=== PATIENT | male | born 1955 | race Caucasian/White ===

== ENCOUNTER 2018-07-14 12:44 | Emergency (ER) | payer OTHER ==
[2018-07-14] MEDS ORDERED: PHENAZOPYRIDINE HCL 200 MG TAB PO ONE (13:56)
[2018-07-14 14:31] LABS: PLATELET COUNT 258 10^3/uL (150-400)
--- NOTE | 2018-07-14 14:50 | EDPHY ---
H & P Time Seen by Provider: 07/14/18 13:01 HPI/ROS: Chief complaint. Abdominal pain, dysuria HPI. 63-year-old male presents with 3 day history of lower abdominal pain. Worse last evening. Some diarrhea last night. He has urinary frequency and tells me he is urinating every 15 min. It also now hurts to urinate. His pain is in the suprapubic area. No radiation of the back. Denies fever. He tells me he can't get comfortable but pain is not worse with movement. He is hypertensive and tells me his blood pressure usually is about 160/90. He does have a history of UTI. No history kidney stones. No chest discomfort or trouble breathing ROS 10 systems were reviewed and negative with the exception of the elements mentioned in the history of present illness Past Medical/Surgical History: Hypertension, inguinal hernia surgery Social History: Single, nonsmoker, no alcohol Smoking Status: Never smoked Physical Exam: General Appearance: Alert well-developed male moderate distress vital signs significant for blood pressure 230/134 Eyes: Pupils equal and round no pallor or injection. ENT, Mouth: Mucous membranes are moist. Respiratory: There are no retractions, lungs are clear to auscultation. Cardiovascular: Regular rate and rhythm. Gastrointestinal: Abdomen is soft with tenderness in the suprapubic area. No flank tenderness. Neurological: Awake and alert, sensory and motor exams grossly normal. Skin: Warm and dry, no rashes. Musculoskeletal: Neck is supple nontender. Extremities symmetrical, full range of motion. Psychiatric: Patient is oriented X 3, there is no agitation. Constitutional: Initial Vital Signs Temperature (C) 36.7 C 07/14/18 12:48 Heart Rate 90 07/14/18 12:48 Respiratory Rate 20 07/14/18 12:48 Blood Pressure 230/134 H 07/14/18 12:48 O2 Sat (%) 94 07/14/18 12:48 O2 Delivery Mode Room Air Allergies/Adverse Reactions: No Known Allergies Allergy (Unverified 07/14/18 12:48) Home Medications: Medication Instructions Recorded Cephalexin [Keflex (*)] 500 mg PO TID #21 cap 07/14/18 Lisinopril-Hctz 10-12.5 mg Tab 07/14/18 oxyCODONE/APAP 5/325 [Percocet 1 tab PO Q4-6PRN PRN #10 tab 07/14/18 5/325] Medical Decision Making - Diagnostics Imaging Results: Imaging Impressions Abdomen/Pelvis CT 07/14/18 13:55 Impression: 1. There is no evidence of nephroureterolithiasis, although there is mild bilateral hydroureteronephrosis secondary to prostatomegaly with pronounced urinary bladder distention, features suggesting an outlet obstruction or high- grade stenosis. 2. Hepatic steatosis. 3. Mild cardiomegaly with coronary artery atherosclerotic plaque. Attention: This CT examination is specifically designed to evaluate patients who are clinically suspected of having acute obstructive uropathy. This examination does not use radiographic contrast, and as such, provides only a limited evaluation of the abdomen, pelvis, and retroperitoneum. If there is further clinical suspicion for pathological conditions other than obstructive uropathy, a complete CT evaluation of the abdomen and pelvis utilizing intravenous, oral, and rectal contrast should be considered. Findings were discussed with JAGJIT RODAS MD at 14:41, on 07/14/2018. Head CT 07/14/18 16:00 Impression: 1. Mild periventricular and deep hemispheric white matter change that can be seen with small vessel ischemic disease. No evidence for acute intracranial abnormality. 2. Mild chronic sinus-related change. Results called and discussed with Dr. Jagjit Rodas on July 14, [address] reviewed by me shows increased prostate size. Significant bladder distension. Mild bilateral hydronephrosis. No evidence for kidney stone. Reviewed by me and discussed with Dr. Martin Noncontrast head CT after fall shows no evidence for acute injury Procedures: IV normal saline. Morphine for pain. Ruth catheter is placed with approximately the 1300 mL of urine out ED Course/Re-evaluation: Patient was turning in bed trying to look at his blood pressure as it had been improving with hypertension resolving after morphine. He twisted and he fell out the patient's right side of the bed. Struck his head. Was found lying on floor. Apparent brief loss of consciousness. Laceration to the forehead and right cheek that do not require sutures. Head CT is ordered. On exam he has no neck pain or any back pain or any other injuries Re-evaluation 5:00 p.m.. Patient and I discussed laboratory evaluation and imaging study results. Patient feels well to go home. He is offered admission. We discussed treatment plan including criteria for return importance of follow-up and further evaluation. He agrees to call Urology on Monday morning. Otherwise he expresses understanding and agreement with treatment plan His blood pressure is currently 155/89 Differential Diagnosis: Acute urinary tension apparently secondary to enlarged prostate. He has had 2000 mL saline out. His abdominal pain has resolved. He fell and hit his head sustaining superficial lacerations do not require sutures. He has a normal head CT. His urine is sent for culture but at this point no obvious evidence of infection. - Data Points Laboratory Results: Laboratory Results 07/14/18 14:16 07/14/18 14:16 07/14/18 07/14/18 07/14/18 14:16 14:16 12:50 WBC 12.50 10^3/uL H 10^3/uL (3.80-9.50) RBC 5.34 10^6/uL 10^6/uL (4.40-6.38) Hgb 14.6 g/dL g/dL (13.7-17.5) Hct 44.4 % % (40.0-51.0) MCV 83.1 fL fL (81.5-99.8) MCH 27.3 pg L pg (27.9-34.1) MCHC 32.9 g/dL g/dL (32.4-36.7) RDW 14.2 % % (11.5-15.2) Plt Count 258 10^3/uL 10^3/uL (150-400) MPV 10.7 fL fL (8.7-11.7) Neut % (Auto) 77.6 % H % (39.3-74.2) Lymph % (Auto) 12.4 % L % (15.0-45.0) [place] % (Auto) 8.6 % % (4.5-13.0) Eos % (Auto) 0.9 % % (0.6-7.6) Baso % (Auto) 0.2 % L % (0.3-1.7) Nucleat RBC Rel Count 0.0 % % (0.0-0.2) Absolute Neuts (auto) 9.69 10^3/uL H 10^3/uL (1.70-6.50) Absolute Lymphs (auto) 1.55 10^3/uL 10^3/uL (1.00-3.00) Absolute Monos (auto) 1.08 10^3/uL H 10^3/uL (0.30-0.80) Absolute Eos (auto) 0.11 10^3/uL 10^3/uL (0.03-0.40) Absolute Basos (auto) 0.03 10^3/uL 10^3/uL (0.02-0.10) Absolute Nucleated RBC 0.00 10^3/uL 10^3/uL (0-0.01) Immature Gran % 0.3 % % (0.0-1.1) Immature Gran # 0.04 10^3/uL 10^3/uL (0.00-0.10) Sodium 139 mEq/L mEq/L (135-145) Potassium 3.9 mEq/L mEq/L (3.5-5.2) Chloride 109 mEq/L mEq/L (97-110) Carbon Dioxide 23 mEq/l mEq/l (22-31) Anion Gap 7 mEq/L mEq/L (6-14) BUN 24 mg/dL H mg/dL (7-23) Creatinine 1.4 mg/dL H mg/dL (0.7-1.3) Estimated GFR 52 Glucose 105 mg/dL H mg/dL (70-100) Calcium 9.5 mg/dL mg/dL (8.5-10.4) Urine Color YELLOW Urine Appearance CLEAR Urine pH 5.0 (5.0-7.5) Ur Specific [place] 1.013 (1.002-1.030) Urine Protein 2+ H (NEGATIVE) Urine Ketones NEGATIVE (NEGATIVE) Urine Blood 2+ H (NEGATIVE) Urine Nitrate NEGATIVE (NEGATIVE) Urine Bilirubin NEGATIVE (NEGATIVE) Urine Urobilinogen NEGATIVE EU EU (0.2-1.0) Ur Leukocyte Esterase NEGATIVE (NEGATIVE) Urine RBC 10-15 /hpf H /hpf (0-3) Urine WBC 1-3 /hpf /hpf (0-3) Ur Epithelial Cells TRACE /lpf /lpf (NONE-1+) Urine Mucus TRACE /lpf /lpf (NONE-1+) Urine Glucose NEGATIVE (NEGATIVE) Medications Given: Discontinued Medications Sodium Chloride (Ns) 1,000 mls @ 0 mls/hr IV ONCE ONE; Wide Open PRN Reason: Protocol Stop: 07/14/18 15:58 Last Admin: 07/14/18 15:58 Dose: 1,000 mls Morphine Sulfate (Morphine) 6 mg IVP EDNOW ONE Stop: 07/14/18 13:55 Last Admin: 07/14/18 14:18 Dose: 6 mg Ondansetron HCl (Zofran) 4 mg IVP EDNOW ONE Stop: 07/14/18 15:58 Last Admin: 07/14/18 15:58 Dose: 4 mg Phenazopyridine HCl (Pyridium) 200 mg PO EDNOW ONE Stop: 07/14/18 13:57 Last Admin: 07/14/18 14:15 Dose: 200 mg Departure - Departure Disposition: Home, Routine, Self-Care Clinical Impression: Acute urinary retention Condition: Good Instructions: Urinary Retention in Men (ED), Ruth Catheter Placement and Care (ED) Additional Instructions: Cephalexin as antibiotic. Percocet as needed for pain. May use ibuprofen 600 mg every 6 hr. May use Tylenol 1000 mg every 4-6 hours for discomfort. Percocet has some Tylenol in it so may use Percocet and ibuprofen together but not Percocet Tylenol together Return over the weekend for worsening symptoms. Call Urology on Monday for further evaluation and catheter removal Referrals: NONE *PRIMARY CARE P,. [Primary Care Provider] - As per Instructions Emmanuel Clay MD [Medical Doctor] - 2-3 days without fail Prescriptions: Cephalexin [Keflex (*)] 500 mg PO TID #21 cap oxyCODONE/APAP 5/325 [Percocet 5/325] 1 tab PO Q4-6PRN PRN #10 tab PRN Reason: Pain, Moderate
[2018-07-14] MEDS ORDERED: ONDANSETRON 4 MG/2 ML VIAL ONE (15:56)
[2018-07-14] MEDS ORDERED: NS 1,000 ML IV ONE (15:57)
[2018-07-14] MEDS ORDERED: ONDANSETRON 4 MG/2 ML VIAL IVP ONE (15:57)
[2018-07-14] MEDS ORDERED: SKIN ADHESIVE (DERMABOND) 1 EACH TP ONE (17:58)
[2018-07-14 18:16] VITALS: BP 174/97
== END 2018-07-14 18:15 | disposition home or self-care (01) ==
PROC: 0T9B70Z Drainage of Bladder with Drainage Device, Via Natural or Artificial Opening (ICD-10-PCS; principal; 2018-07-14)
DX: N40.3 Nodular prostate with lower urinary tract symptoms (principal); R33.9 Retention of urine, unspecified; E86.9 Volume depletion, unspecified
CPT/HCPCS: 96374; J2270; J2405

== ENCOUNTER → 2018-08-24 | Outpatient (CLI) | payer SELFPAY | LOC: FIMAGING 08:31 | PROVIDERS: ATTEND Specialist | DX: M50.323 Other cervical disc degeneration at C6-C7 level (principal); M50.33 Other cervical disc degeneration, cervicothoracic region; C61 Malignant neoplasm of prostate | CPT/HCPCS: A9503 ==

== ENCOUNTER 2018-09-22 11:55 | Emergency (ER) | payer MEDICAID ==
--- NOTE | 2018-09-22 12:11 | EDPHY ---
H & P Time Seen by Provider: 09/22/18 12:08 HPI/ROS: Chief complaint. Catheter not draining HPI. Patient is a 63-year-old male with history of prostate cancer. He has had a Ruth catheter in place for about 6 weeks. Seen yesterday by Urology. Today he feels that the catheter is not draining. He has discomfort when he feels urge to urinate. Otherwise no abdominal pain, fever, vomiting. No chest discomfort or trouble breathing. ROS 10 systems were reviewed and negative with the exception of the elements mentioned in the history of present illness Past Medical/Surgical History: Prostate cancer, hypertension, inguinal hernia repair Social History: Single, nonsmoker, no alcohol Smoking Status: Never smoked Physical Exam: General Appearance: Well-developed male mild distress vital signs are stable Eyes: Pupils equal and round no pallor or injection. ENT, Mouth: Mucous membranes are moist. Respiratory: There are no retractions, lungs are clear to auscultation. Cardiovascular: Regular rate and rhythm. Gastrointestinal: Abdomen soft mildly tender in suprapubic pubic area. No masses. Normal bowel sounds. Ruth catheter in place Neurological: Awake and alert, sensory and motor exams grossly normal. Skin: Warm and dry, no rashes. Musculoskeletal: Neck is supple nontender. Extremities symmetrical, full range of motion. Psychiatric: Patient is oriented X 3, there is no agitation. Constitutional: Initial Vital Signs Temperature (C) 36.4 C 09/22/18 11:58 Heart Rate 78 09/22/18 11:58 Respiratory Rate 18 09/22/18 11:58 Blood Pressure 175/85 H 09/22/18 11:58 O2 Sat (%) 95 09/22/18 11:58 O2 Delivery Mode Room Air Allergies/Adverse Reactions: No Known Allergies Allergy (Unverified 07/14/18 12:48) Home Medications: Medication Instructions Recorded Cephalexin [Keflex (*)] 500 mg PO TID #21 cap 09/22/18 HCTZ (*) 09/22/18 Lisinopril 09/22/18 Medical Decision Making Procedures: Bladder scan shows no urine in the bladder. The Ruth catheter in bladder are irrigated ED Course/Re-evaluation: The catheter was flushed and irrigated and seems to be working. Patient has head large glass of water. Re-evaluation 2:05 p.m. There is no urine in the Ruth bag. Bladder scan shows 400 mL in bladder. A catheter is replaced and now draining Patient and I discussed laboratory evaluation, treatment plan including criteria for return importance of follow-up and further evaluation. He expresses understanding and agreement Differential Diagnosis: Ruth catheter was not draining. It has been flushed initially however there was no urine in the bladder on initial bladder scan. After hydration there is 400 mL of urine in the bladder but the Ruth was not working. It has been replaced min now functioning. Patient has evidence of catheter acquired urinary tract infection. It has been sent for culture and sensitivity. Patient is started on cephalexin - Data Points Laboratory Results: 09/22/18 12:15 Urine Color YELLOW Urine Appearance TURBID Urine pH 5.0 (5.0-7.5) Ur Specific [place] 1.019 (1.002-1.030) Urine Protein 2+ H (NEGATIVE) Urine Ketones NEGATIVE (NEGATIVE) Urine Blood 2+ H (NEGATIVE) Urine Nitrate NEGATIVE (NEGATIVE) Urine Bilirubin NEGATIVE (NEGATIVE) Urine Urobilinogen NEGATIVE EU EU (0.2-1.0) Ur Leukocyte Esterase 3+ H (NEGATIVE) Urine RBC 50-182 /hpf H /hpf (0-3) Urine WBC 50-182 /hpf H /hpf (0-3) Ur Epithelial Cells NONE SEEN /lpf /lpf (NONE-1+) Amorphous Sediment PRESENT /hpf /hpf (NONE-1+) Urine Bacteria 4+ /hpf H /hpf (NONE SEEN) Hyaline Casts 15-25 /lpf H /lpf (0-1) Urine Mucus 3+ /lpf H /lpf (NONE-1+) Urine Glucose NEGATIVE (NEGATIVE) Medications Given: Discontinued Medications Cephalexin HCl (Keflex) 500 mg PO EDNOW ONE PRN Reason: Protocol Stop: 09/22/18 13:13 Last Admin: 09/22/18 13:19 Dose: 500 mg Lidocaine (Uroject Lidocaine 2% Jelly) 20 ml UR EDNOW ONE Stop: 09/22/18 14:45 Last Admin: 09/22/18 14:45 Dose: 20 ml Departure - Departure Disposition: Home, Routine, Self-Care Clinical Impression: Urinary tract infection Qualifiers: Urinary tract infection type: catheter-associated UTI Indwelling urinary catheter type: indwelling urethral catheter Encounter type: initial encounter Qualified Code(s): T83.511A - Infection and inflammatory reaction due to indwelling urethral catheter, initial encounter; N39.0 - Urinary tract infection , site not specified; N39.0 - Urinary tract infection, site not specified Ruth catheter problem Qualifiers: Encounter type: initial encounter Qualified Code(s): T83.9XXA - Unspecified complication of genitourinary prosthetic device, implant and graft, initial encounter Condition: Good Instructions: Ruth Catheter Placement and Care (ED), [facility] Patient Education, Infection Prevention Additional Instructions: Drink plenty of fluids and stay hydrated Cephalexin as antibiotic Return for worsening symptoms, fever, vomiting Recheck with either your regular physician or Dr. Clay in 2-3 days without fail Referrals: NONE *PRIMARY CARE P,. [Primary Care Provider] - As per Instructions Emmanuel Clay MD [Medical Doctor] - As per Instructions Prescriptions: Cephalexin [Keflex (*)] 500 mg PO TID #21 cap
[2018-09-22] MEDS ORDERED: CEPHALEXIN 500 MG CAP PO ONE (13:12)
[2018-09-22] MEDS ORDERED: LIDOCAINE 2% JELLY 20 ML (UROJECT) ONE (14:44)
[2018-09-22] MEDS ORDERED: LIDOCAINE 2% JELLY 20 ML (UROJECT) UR ONE (14:44)
[2018-09-22 15:17] VITALS: BP 185/90
== END 2018-09-22 15:19 | disposition home or self-care (01) ==
PROC: 4A0D7LZ Measurement of Urinary Volume, Via Natural or Artificial Opening (ICD-10-PCS; principal; 2018-09-22)
PROC: 0T9B70Z Drainage of Bladder with Drainage Device, Via Natural or Artificial Opening (ICD-10-PCS; principal; 2018-09-22)
DX: T83.091A Other mechanical complication of indwelling urethral catheter, initial encounter (principal); T83.511A Infection and inflammatory reaction due to indwelling urethral catheter, initial encounter; N39.0 Urinary tract infection, site not specified; Y73.2 Prosthetic and other implants, materials and accessory gastroenterology and urology devices associated with adverse incidents; Z85.46 Personal history of malignant neoplasm of prostate

== ENCOUNTER 2018-10-08 20:32 | Emergency (ER) | payer MEDICAID ==
--- NOTE | 2018-10-08 21:06 | EDPHY ---
H & P Stated Complaint: Ruth cathr plugged, since this AM, Prostate Ca pt Time Seen by Provider: 10/08/18 20:55 HPI/ROS: CHIEF COMPLAINT: Ruth catheter obstruction HISTORY OF PRESENT ILLNESS: The patient is a 63-year-old man with a history of prostate cancer who is waiting for treatment and TURP. He has an indwelling Ruth catheter. He was seen here 2 weeks ago for obstruction and urinary tract infection at that time started on Keflex had his Ruth changed. He was on this for 10 days and was then switched to ciprofloxacin by his urologist 3 days ago. He states that his urine has been clear and he is not concerned about this but today he has felt increasing pressure and has not had much urine into his bag. He is here requesting a Ruth catheter change. He states that last time they tried to flush it 1st but it did not work. Severity: Moderate Modifying factors: None REVIEW OF SYSTEMS: Constitutional: denies: chills, fever, recent illness, recent injury EENTM: denies: blurred vision, double vision, nose congestion Respiratory: denies: cough, shortness of breath Cardiac: denies: chest pain, irregular heart rate, lightheadedness, palpitations Gastrointestinal/Abdominal: denies: abdominal pain, diarrhea, nausea, vomiting, blood streaked stools Genitourinary: See HPI Musculoskeletal: denies: joint pain, muscle pain Skin: denies: lesions, rash, jaundice, bruising Neurological: denies: headache, numbness, paresthesia, tingling, dizziness, weakness Hematologic/Lymphatic: denies: blood clots, easy bleeding, easy bruising Immunologic/allergic: denies: HIV/AIDS, transplant 10 systems reviewed and negative except as noted EXAM: GENERAL: Well-appearing, obese and in no acute distress. HEAD: Atraumatic, normocephalic. EYES: Pupils equal round and reactive to light, extraocular movements intact, sclera anicteric, conjunctiva are normal. ENT: TMs normal, nares patent, oropharynx clear without exudates. Moist mucous membranes. NECK: Normal range of motion, supple without lymphadenopathy or JVD. LUNGS: Breath sounds clear to auscultation bilaterally and equal. No wheezes rales or rhonchi. HEART: Regular rate and rhythm without murmurs, rubs or gallops. ABDOMEN: Obese, Soft, nontender, normoactive bowel sounds. No guarding, no rebound. No masses appreciated. BACK: No CVA tenderness, no spinal tenderness, step-offs or deformities EXTREMITIES: Normal range of motion, no pitting or edema. No clubbing or cyanosis. NEUROLOGICAL: Cranial nerves II through XII grossly intact. Normal speech, normal gait. 5/5 strength, normal movement in all extremities, normal sensation , normal reflexes PSYCH: Normal mood, normal affect. SKIN: Warm, dry, normal turgor, no visible rashes or lesions. Source: Patient Exam Limitations: No limitations - Personal History Current Tetanus Diphtheria and Acellular Pertussis (TDAP): Yes - Medical/Surgical History Hx Asthma: No Hx Chronic Respiratory Disease: No Hx Diabetes: No Hx Cardiac Disease: No Hx Renal Disease: No Hx Cirrhosis: No Hx Alcoholism: No Hx HIV/AIDS: No Hx Splenectomy or Spleen Trauma: No Other PMH: hypertension, l inguinal hernia surg, prostate ca - Family History Significant Family History: No pertinent family hx - Social History Smoking Status: Never smoked Alcohol Use: None Constitutional: Initial Vital Signs Temperature (C) 36.8 C 10/08/18 20:35 Heart Rate 101 H 10/08/18 20:35 Respiratory Rate 17 10/08/18 20:35 Blood Pressure 209/123 H 10/08/18 20:35 O2 Sat (%) 93 10/08/18 20:35 O2 Delivery Mode Room Air Allergies/Adverse Reactions: No Known Allergies Allergy (Unverified 10/08/18 20:39) Home Medications: Medication Instructions Recorded Cephalexin [Keflex (*)] 500 mg PO TID #21 cap 09/22/18 HCTZ (*) 09/22/18 Lisinopril 09/22/18 Cipro 10/08/18 Medical Decision Making ED Course/Re-evaluation: Mom performed a bedside ultrasound. The patient has approximately 800 cc of urine in his bladder. Will replace Ruth catheter. Will send urine for testing. Ruth catheter placed. He has had about 800 cc out and feels much better. 1+ leuk esterase significantly improved from previous evaluation. Will send for cultures. Patient is currently taking Cipro and he will continue. He states that he does not feel like he is having a urinary tract infection. He will follow up with urologist and oncologist later this week. He declines further workup or testing and is eager to go home. Differential Diagnosis: Partial list of the Differential diagnosis considered include but were not limited to; urinary tract infection, Ruth catheter malfunction, hematuria and although unlikely based on the history and physical exam, I also considered perforation, dehydration, renal insufficiency. I discussed these differential diagnoses and the plan with the patient as well as the usual and expected course. The patient understands that the diagnosis is provisional and that in medicine we are not always correct and that further workup is often warranted. Usual and customary warnings were given. All of the patient's questions were answered. The patient was instructed to return to the emergency department should the symptoms at all worsen or return, otherwise to followup with the physician as we discussed. - Data Points Laboratory Results: 10/08/18 21:29 Urine Color YELLOW Urine Appearance CLEAR Urine pH 5.0 (5.0-7.5) Ur Specific [place] 1.015 (1.002-1.030) Urine Protein 1+ H (NEGATIVE) Urine Ketones NEGATIVE (NEGATIVE) Urine Blood 2+ H (NEGATIVE) Urine Nitrate NEGATIVE (NEGATIVE) Urine Bilirubin NEGATIVE (NEGATIVE) Urine Urobilinogen NEGATIVE EU EU (0.2-1.0) Ur Leukocyte Esterase 1+ H (NEGATIVE) Urine RBC 15-25 /hpf H /hpf (0-3) Urine WBC 15-25 /hpf H /hpf (0-3) Ur Epithelial Cells NONE SEEN /lpf /lpf (NONE-1+) Urine Bacteria 1+ /hpf H /hpf (NONE SEEN) Hyaline Casts 1-5 /lpf /lpf (0-1) Urine Mucus TRACE /lpf /lpf (NONE-1+) Urine Glucose NEGATIVE (NEGATIVE) Departure - Departure Disposition: Home, Routine, Self-Care Clinical Impression: Ruth catheter problem Qualifiers: Encounter type: initial encounter Qualified Code(s): T83.9XXA - Unspecified complication of genitourinary prosthetic device, implant and graft, initial encounter Condition: Fair Instructions: [facility] Patient Education, Infection Prevention, Ruth Catheter Placement and Care (ED) Referrals: NONE *PRIMARY CARE P,. [Primary Care Provider] - As per Instructions Emmanuel Clay MD [Medical Doctor] - As per Instructions
[2018-10-08] MEDS ORDERED: LIDOCAINE 2% JELLY 20 ML (UROJECT) ONE (21:12)
[2018-10-08 22:16] VITALS: BP 148/91
== END 2018-10-08 22:15 | disposition home or self-care (01) ==
PROC: 0T9B70Z Drainage of Bladder with Drainage Device, Via Natural or Artificial Opening (ICD-10-PCS; principal; 2018-10-08)
DX: T83.098A Other mechanical complication of other urinary catheter, initial encounter (principal); Y73.2 Prosthetic and other implants, materials and accessory gastroenterology and urology devices associated with adverse incidents; Z85.46 Personal history of malignant neoplasm of prostate

== ENCOUNTER 2018-10-20 11:27 | Emergency (ER) | payer MEDICAID ==
--- NOTE | 2018-10-20 11:54 | EDPHY ---
H & P Stated Complaint: no output from urinary catheter since 6am Time Seen by Provider: 10/20/18 11:54 HPI/ROS: HPI: This is a 63-year-old male who presents with Chief Complaint: Mckenzie catheter leaking Location: Quality: Mckenzie catheter leaking Duration: Since this morning, approximately 1-3 hours Signs and Symptoms: no fever, no nausea, no vomiting, no hematemesis, no blood in stool, no abdominal bloating, no diarrhea, no back pain, no urinary symptoms , no testicular/groin pain, no indigestion, no chest pain, no shortness of breath Timing: Acute Severity: Mild Context: Patient has a history of prostate cancer and is awaiting treatment and TURP to be performed by Dr. Clay. He has an appoint with Dr. Clay on October 27. He was seen here in this emergency room on 10/08/2018 and had Mckenzie catheter inserted. Urinalysis showed bacteria in the urine and he was placed on Keflex. Urine culture showed no growth. Patient reports that he has not urinated in the last 2 hr and believes that his Mckenzie catheter is clogged and is requesting it to be exchanged. Denies any fever, back pain, chills, rigors, testicular pain, groin pain, dysuria. Modifying Factors: None Comment: ROS: A comprehensive 10 system review of systems is otherwise negative aside from elements mentioned in the history of present illness. MEDICAL/SURGICAL/SOCIAL HISTORY: Medical history: hypertension, l inguinal hernia surg, prostate ca Surgical history: Denies Social history: Never smoked. Family history noncontributory. CONSTITUTIONAL: Overweight, nontoxic appearing, elderly white male, awake and alert, no obvious distress HEENT: Atraumatic and normocephalic, PERRL, EOMI. Nares patent; no rhinorrhea; no nasal mucosal edema. Tympanic membranes clear. Oropharynx clear, no exudate and moist pink mucosa. Airway patent. No lymphadenopathy. No meningismus. Cardiovascular: Normal S1/S2, regular rate, regular rhythm, without murmur rub or gallop. PULMONARY/CHEST: Symmetrical and nontender. Clear to auscultation bilaterally. Good air movement. No accessory muscle usage. ABDOMEN: Soft, nondistended, nontender, no rebound, no guarding, no peritoneal signs, no masses or organomegaly. No CVAT. Male : circumcised penis, bilateral descended testes, no testicular swelling, no testicular masses, no penile discharge, no lesions, negative Prehn's sign. Mckenzie catheter present in urethra. EXTREMITIES: 2/2 pulses, strength 5/5, no deformities, no clubbing, no cyanosis or edema. NEUROLOGICAL: no focal neuro deficits. GCS 15. SKIN: Warm and dry, no erythema. no rash. Good capillary refill. Source: Patient, Old records Exam Limitations: No limitations - Personal History Current Tetanus/Diphtheria Vaccine: Yes Current Tetanus Diphtheria and Acellular Pertussis (TDAP): Yes - Medical/Surgical History Hx Asthma: No Hx Chronic Respiratory Disease: No Hx Diabetes: No Hx Cardiac Disease: No Hx Renal Disease: No Hx Cirrhosis: No Hx Alcoholism: No Hx HIV/AIDS: No Hx Splenectomy or Spleen Trauma: No Other PMH: hypertension, l inguinal hernia surg, prostate ca - Social History Smoking Status: Never smoked Constitutional: Initial Vital Signs Temperature (C) 36.5 C 10/20/18 11:27 Heart Rate 91 10/20/18 11:27 Respiratory Rate 16 10/20/18 11:27 Blood Pressure 168/101 H 10/20/18 11:27 O2 Sat (%) 94 10/20/18 11:27 O2 Delivery Mode Room Air Allergies/Adverse Reactions: unknown antibiotic Allergy (Mild, Uncoded 10/20/18 11:33) Other-Enter Comments Home Medications: Medication Instructions Recorded HCTZ (*) 09/22/18 Lisinopril 09/22/18 Medical Decision Making ED Course/Re-evaluation: Vital signs reviewed and show elevated blood pressure upon arrival. No systemic signs. RN to irrigate Mckenzie catheter and replace if needed. 1250: Mckenzie replaced with 18 Salvadorean with return of 150 mL of yellow urine Monitored 2 hr in the emergency room with draining of urine and no complications. Patient will be discharged home with Urology follow-up. Thoroughly discussed mckenzie care This patient was seen under the supervision of my secondary supervising physician. I evaluated care for this patient with attending. Differential Diagnosis: Differential diagnosis includes but is not limited to urinary tract infection, urinary retention, Mckenzie catheter malfunction, sediment buildup. Departure - Departure Disposition: Home, Routine, Self-Care Clinical Impression: Encounter for Mckenzie catheter replacement Condition: Good Instructions: Mckenzie Catheter Placement and Care (ED) Additional Instructions: Please keep follow-up appointment with Dr. Clay. Referrals: Emmanuel Clay MD [Medical Doctor] - As per Instructions
[2018-10-20 13:10] VITALS: BP 158/89
== END 2018-10-20 13:09 | disposition home or self-care (01) ==
PROC: 0T9B70Z Drainage of Bladder with Drainage Device, Via Natural or Artificial Opening (ICD-10-PCS; principal; 2018-10-20)
DX: T83.031A Leakage of indwelling urethral catheter, initial encounter (principal); Y73.2 Prosthetic and other implants, materials and accessory gastroenterology and urology devices associated with adverse incidents

== ENCOUNTER 2018-11-03 13:10 | Emergency (ER) | payer MEDICAID ==
--- NOTE | 2018-11-03 13:25 | EDPHY ---
H & P Stated Complaint: urinary catheter not draining properly per pt Time Seen by Provider: 11/03/18 13:22 HPI/ROS: CHIEF COMPLAINT: Urinary catheter problem HISTORY OF PRESENT ILLNESS: The patient is a 63 y/o male who recently began pharmaceutical treatment (Lupron recently) for prostate cancer and currently has a Ruth catheter. A catheter has been in place consistently since July 14, prompting 4 prior visits here to either flush or replace this catheter. He last saw his urologist, Dr. Clay, on Monday, 4 days ago. He reports his PSA level has been decreasing and there are no plans for surgical intervention at this time. Over the last day or so he has developed leaking around the sides of Ruth and thinks the catheter is about to clog again. He last emptied the bag at 10:00 this morning, about 3.5 hours ago. He empties the bag about 8-10 times in a 24-hour period on average. He denies any associated abdominal pain, nausea , fever. He is here for catheter replacement. REVIEW OF SYSTEMS: A ten system review of systems was performed and is negative with the exception of the items mentioned in the HPI. He mentions he occasionally gets hot flashes associated with a cough and the coughing causes a headache. These symptoms resolve after he takes an aspirin and do not have an obvious precipitating cause. Past medical history: 1. Prostate cancer - 2. Hypertension 3. Inguinal hernia repair 4. Anemia - iron deficiency 5. Recent elevated non-fasting BGL Past surgical history: 1. Inguinal hernia repair 2. Prostate biopsy Social history: Urologist: Dr. Clay. PCP: [facility]. Single, son lives with him. No alcohol. Nonsmoker. No illicit drugs. Works in maintenance for [employer]. General Appearance: Alert. Vital signs reviewed. Blood pressure 178/90. Eyes: Pupils equal and round, no conjunctival injection, no discharge. Anicteric. ENT, Mouth: Mucous membranes are moist, no oropharyngeal erythema or edema. Neck: No lymphadenopathy, supple. Respiratory: Lungs are clear to auscultation; no wheezes, rales, or rhonchi. Cardiovascular: Regular rate and rhythm; no murmur, rub, or gallop. Gastrointestinal: Abdomen is nontender and obese. Genitalia: Normal circumcised male. 18F urinary catheter with some leakage around catheter in the meatus. Leg bag in place. Bilaterally descended testes. No scrotal tenderness. Skin: Warm and dry, no rashes on exposed skin, normal color. Back: Nontender to palpation over the thoracolumbar spine. No CVAT. Extremities: No lower extremity edema, no calf tenderness or swelling. Neurological: Alert and oriented. Moving all four extremities easily and equally. Psychiatric: Normal affect. - Personal History Current Tetanus/Diphtheria Vaccine: No Current Tetanus Diphtheria and Acellular Pertussis (TDAP): No - Medical/Surgical History Hx Asthma: No Hx Chronic Respiratory Disease: No Hx Diabetes: No Hx Cardiac Disease: No Hx Renal Disease: No Hx Cirrhosis: No Hx Alcoholism: No Hx HIV/AIDS: No Hx Splenectomy or Spleen Trauma: No Other PMH: hypertension, l inguinal hernia surg, prostate ca - Social History Smoking Status: Never smoked Constitutional: Initial Vital Signs Temperature (C) 36.7 C 11/03/18 13:12 Heart Rate 88 11/03/18 13:12 Respiratory Rate 16 11/03/18 13:12 Blood Pressure 178/90 H 11/03/18 13:12 O2 Sat (%) 97 11/03/18 13:12 O2 Delivery Mode Room Air Allergies/Adverse Reactions: No Known Allergies Allergy (Unverified 11/03/18 13:11) Home Medications: Medication Instructions Recorded HCTZ (*) 09/22/18 Lisinopril 09/22/18 Medical Decision Making ED Course/Re-evaluation: This is a 63 y/o male currently undergoing treatment for prostate cancer who presents with a 1-day history of Ruth catheter leakage and concern for possible clogging of the catheter. On exam, he has an 18F Ruth catheter in place with urinary leakage around catheter. Abdomen and scrotum are non-tender. Plan for bladder scan and Ruth flushing. Bladder scan reveals minimal urine, 15mL. Ruth has been replaced and is flushing normally. Patient will be discharged home with standard Ruth care instructions and recommendation to follow up with his urologist this week. Return precautions discussed. He is comfortable with this plan. Differential Diagnosis: Differential diagnosis includes but is not limited to urinary tract infection, Ruth catheter malfunction, urinary retention. Departure - Departure Disposition: Home, Routine, Self-Care Clinical Impression: Ruth catheter problem Qualifiers: Encounter type: initial encounter Qualified Code(s): T83.9XXA - Unspecified complication of genitourinary prosthetic device, implant and graft, initial encounter Condition: Good Instructions: Ruth Catheter Placement and Care (ED) Additional Instructions: Follow up with your urologist in the next week for reassessment. Referrals: Emmanuel Clay MD [Medical Doctor] - As per Instructions Report Scribed for: Edna Valdes Report Scribed by: Lo Snider Date of Report: 11/03/18 Time of Report: 13:47 Physician Review and Approval Statement: 11/06/18 13:11 Portions of this note were transcribed by the medical asst. I, Dr. Edna Valdes, personally performed the history, physical exam, and medical decision- making; and confirmed the accuracy of the information in the transcribed note.
[2018-11-03 16:44] VITALS: BP 164/86
== END 2018-11-03 16:44 | disposition home or self-care (01) ==
DX: T83.031A Leakage of indwelling urethral catheter, initial encounter (principal); I10 Essential (primary) hypertension; Y73.2 Prosthetic and other implants, materials and accessory gastroenterology and urology devices associated with adverse incidents; Z85.46 Personal history of malignant neoplasm of prostate

== ENCOUNTER 2018-11-11 20:37 | Emergency (ER) | payer MEDICAID ==
--- NOTE | 2018-11-11 21:46 | EDPHY ---
H & P Stated Complaint: "Mckenzie is clogged", multiple ER visits for mckenzie replacement Time Seen by Provider: 11/11/18 21:40 HPI/ROS: CHIEF COMPLAINT: Mckenzie catheter malfunction HISTORY OF PRESENT ILLNESS: Patient is a 63-year-old man with a history of prostate cancer who is currently receiving Lupron therapy with Dr. Clay. He has had an indwelling Mckenzie catheter but has had to have it replaced consistently because it frequently clogs with debris. He states that today it stopped draining and he is leaking around the Mckenzie catheter. This is typical. He does not have pain or distension. The urine remains clear and yellow other than the debris which is baseline. No fevers. No back pain. Severity: Moderate Modifying factors: None REVIEW OF SYSTEMS: Constitutional: denies: chills, fever, recent illness, recent injury EENTM: denies: blurred vision, double vision, nose congestion Respiratory: denies: cough, shortness of breath Cardiac: denies: chest pain, irregular heart rate, lightheadedness, palpitations Gastrointestinal/Abdominal: denies: abdominal pain, diarrhea, nausea, vomiting, blood streaked stools Genitourinary: See HPI Musculoskeletal: denies: joint pain, muscle pain Skin: denies: lesions, rash, jaundice, bruising Neurological: denies: headache, numbness, paresthesia, tingling, dizziness, weakness Hematologic/Lymphatic: denies: blood clots, easy bleeding, easy bruising Immunologic/allergic: denies: HIV/AIDS, transplant 10 systems reviewed and negative except as noted EXAM: GENERAL: Morbidly obese, no acute distress HEAD: Atraumatic, normocephalic. EYES: Pupils equal round and reactive to light, extraocular movements intact, sclera anicteric, conjunctiva are normal. ENT: TMs normal, nares patent, oropharynx clear without exudates. Moist mucous membranes. NECK: Normal range of motion, supple without lymphadenopathy or JVD. LUNGS: Breath sounds clear to auscultation bilaterally and equal. No wheezes rales or rhonchi. HEART: Regular rate and rhythm without murmurs, rubs or gallops. ABDOMEN: Soft, nontender, normoactive bowel sounds. No guarding, no rebound. No masses appreciated. : Mckenzie catheter in place, urine in debris in leg bag, drainage from around the catheter. No erythema or swelling. BACK: No CVA tenderness, no spinal tenderness, step-offs or deformities EXTREMITIES: Normal range of motion, no pitting or edema. No clubbing or cyanosis. NEUROLOGICAL: Cranial nerves II through XII grossly intact. Normal speech, normal gait. 5/5 strength, normal movement in all extremities, normal sensation , normal reflexes PSYCH: Normal mood, normal affect. SKIN: Warm, dry, normal turgor, no visible rashes or lesions. Source: Patient Exam Limitations: No limitations - Personal History Current Tetanus Diphtheria and Acellular Pertussis (TDAP): Yes Tetanus Vaccine Date: 2015 - Medical/Surgical History Hx Asthma: No Hx Chronic Respiratory Disease: No Hx Diabetes: No Hx Cardiac Disease: No Hx Renal Disease: No Hx Cirrhosis: No Hx Alcoholism: No Hx HIV/AIDS: No Hx Splenectomy or Spleen Trauma: No Other PMH: hypertension, l inguinal hernia surg, prostate ca - Family History Significant Family History: No pertinent family hx - Social History Smoking Status: Never smoked Alcohol Use: Sober Drug Use: None Constitutional: Initial Vital Signs Temperature (C) 37.2 C 11/11/18 20:38 Heart Rate 92 11/11/18 20:38 Respiratory Rate 17 11/11/18 20:38 Blood Pressure 145/96 H 11/11/18 20:38 O2 Sat (%) 96 11/11/18 20:38 O2 Delivery Mode Room Air Allergies/Adverse Reactions: No Known Allergies Allergy (Unverified 11/11/18 20:38) Home Medications: Medication Instructions Recorded HCTZ (*) 09/22/18 Lisinopril 09/22/18 Medical Decision Making ED Course/Re-evaluation: Will replace the patient's Mckenzie catheter. 10:00 p.m. Mckenzie catheter replaced successfully. Draining fluid. No leakage. Patient happy in eager to go home. He will follow up with Dr. Clay. Differential Diagnosis: Partial list of the Differential diagnosis considered include but were not limited to; the catheter dysfunction, urinary tract infection, prostatic hypertrophy/cancer and although unlikely based on the history and physical exam , I also considered sepsis, pyelonephritis, foreign body. I discussed these differential diagnoses and the plan with the patient as well as the usual and expected course. The patient understands that the diagnosis is provisional and that in medicine we are not always correct and that further workup is often warranted. Usual and customary warnings were given. All of the patient's questions were answered. The patient was instructed to return to the emergency department should the symptoms at all worsen or return, otherwise to followup with the physician as we discussed. Departure - Departure Disposition: Home, Routine, Self-Care Clinical Impression: Malfunction of Mckenzie catheter Qualifiers: Encounter type: initial encounter Qualified Code(s): T83.011A - Breakdown ( mechanical) of indwelling urethral catheter, initial encounter Condition: Fair Instructions: Mckenzie Catheter Placement and Care (ED) Referrals: NONE *PRIMARY CARE P,. [Primary Care Provider] - As per Instructions Emmanuel Clay MD [Medical Doctor] - As per Instructions
[2018-11-11 22:15] VITALS: BP 140/90
== END 2018-11-11 22:13 | disposition home or self-care (01) ==
PROC: 0T9B70Z Drainage of Bladder with Drainage Device, Via Natural or Artificial Opening (ICD-10-PCS; principal; 2018-11-11)
DX: T83.098A Other mechanical complication of other urinary catheter, initial encounter (principal); E66.01 Morbid (severe) obesity due to excess calories; I10 Essential (primary) hypertension; Z85.46 Personal history of malignant neoplasm of prostate

== ENCOUNTER 2018-11-29 05:30 | Observation (INO) | payer MEDICAID ==
--- NOTE | 2018-11-28 21:07 | GHP ---
[f rep st] PREOP HISTORY AND PHYSICAL DATE OF ADMISSION: 11/29/2018 ADMISSION DIAGNOSIS: Metastatic prostate cancer with urinary retention. This is a gentleman who has had metastatic prostate cancer, Dickerson score 10, confirmed on biopsy, and he has recently had 1300 mL retained urine secondary to BPH. At the present time, he is admitted for a TURP because he has be en on catheter requirement and prefers to try to be catheter free. On August 07 he did have a tra nsrectal ultrasound and biopsy of the prostate, and the ultrasound revealed his prostate size was 46. 3 g. At the present time, he is admitted for the TURP. Indication, complications, risks discussed. Written and verbal consent have been obtained. He is admitted for the above procedure. He has had a bone scan in the past which did not confirm metastatic disease, but he has had a CAT scan that show ed bilateral nephrolithiasis and nephroureterolithiasis and prostatomegaly with bladder distention. His PSA values went from above 100 to 2.3 on Firmagon and Lupron. His most recent Lupron injection w as 10/29/2018. PAST MEDICAL HISTORY: Significant for hypertension and prostate cancer with adjacent sequela. PAST SURGICAL HISTORY: Herniorrhaphy. MEDICATIONS: Lisinopril/hydrochlorothiazide 20/12.5, and the androgen deprivation therapy. ALLERGIES: None. FAMILY HISTORY: Hypertension. SOCIAL HISTORY: Rare consumption of alcohol. Nonsmoker. PHYSICAL EXAMINATION: VITAL SIGNS: Stable. CHEST: Clear. HEART: Regular rate and rhythm. ABDOM EN: Normal. No organomegaly, rebound or guarding. LOWER EXTREMITIES: Normal. At the present time, he is admitted for the TURP and he appears to be well informed and has requested this be done. /[id number]/MODL
[2018-11-29] MEDS ORDERED: LR 1,000 ML IV ONE (05:50)
[2018-11-29] MEDS ORDERED: LIDOCAINE 2% JELLY 20 ML (UROJECT) ONE (07:04)
[2018-11-29] MEDS ORDERED: VANCOMYCIN PHARMACY TO DOSE MISC ONE (07:04)
--- NOTE | 2018-11-29 07:04 | PDHPUP ---
History & Physical Update H&P update statement: This history and physical update is based on an assessment of the patient which was completed after admission or registration (within 24 hours), but prior to the surgery/procedure. H&P update: H&P reviewed & patient examined, no change in patient's condition since H&P completed
[2018-11-29] MEDS ORDERED: GENTAMICIN SULFATE 120 MG in D5W 100 ML IV ONE (07:05)
--- NOTE | 2018-11-29 07:09 | PDANEPAE ---
ANE History of Present Illness BPH and Prostate s/f TURP ANE Past Medical History - Cardiovascular History Hx Hypertension: Yes Hx Arrhythmias: No Hx Chest Pain: No Hx Coronary Artery / Peripheral Vascular Disease: No Hx CHF / Valvular Disease: No - Pulmonary History Hx COPD: No Hx Asthma/Reactive Airway Disease: No Hx Recent Upper Respiratory Infection: No Hx Oxygen in Use at Home: No Hx Sleep Apnea: Yes Sleep Apnea Screening Result - Last Documented: Positive Pulmonary History Comment: cough r/t lupron injection - Neurologic History Hx Cerebrovascular Accident: No Hx Seizures: No Hx Dementia: No - Endocrine History Hx Diabetes: No - Renal History Hx Renal Disorders: No Renal History Comment: urine leakage around catheter - Liver History Hx Hepatic Disorders: No - Neurological & Psychiatric Hx Hx Neurological and Psychiatric Disorders: No Neurological / Psychiatric History Comment: situational depression - Cancer History Hx Cancer: Yes Cancer History Comment: prostate - Congenital Disorder History Hx Congenital Disorders: No - GI History Hx Gastrointestinal Disorders: No - Other Health History Other Health History: chipped teeth. anemia (on iron) - Chronic Pain History Chronic Pain: No - Surgical History Prior Surgeries: inguinal hernia with mesh 2014 ANE Review of Systems Review of Systems: - Exercise capacity METS (RN): 4 METS ANE Patient History - Allergies Allergies/Adverse Reactions: No Known Allergies Allergy (Verified 11/22/18 11:44) - Home Medications Home medications: home medication list seen and reviewed Home Medications: Lisinopril/Hctz 20/12.5MG [Zestoretic/Prinzide 20/12.5MG (*)] 1 ea PO DAILY@12 09/22/18 [Last Taken 11/28/18] Acetaminophen [Tylenol 325mg (*)] 325 mg PO Q6 PRN 11/22/18 [Last Taken 11/22/18 ] Ferrous Sulfate [Ferrous Sulf 325 MG (*)] 325 mg PO DAILY 11/22/18 [Last Taken 11/28/18] Leuprolide Acetate [Lupron Depot] 22.5 mg IM [id number] 11/22/18 [Last Taken 05/28] - NPO status NPO Status: no food or drink >8 hours NPO Since - Liquids (Date): 11/28/18 NPO Since - Liquids (Time): 22:00 NPO Since - Solids (Date): 11/28/18 NPO Since - Solids (Time): 20:00 - Anes Hx Anes Hx: no prior problems - Smoking Hx Smoking Status: Never smoked - Alcohol Use Alcohol Use: Occasionally - Family Anes Hx Family Anes Hx: none Family Hx Anesthesia Complications: none ANE Labs/Vital Signs - Labs - CBC WBC: reviewed and okay - Vital Signs Blood Pressure: 155/81 Heart Rate: 79 Respiratory Rate: 18 O2 Sat (%): 94 Height: 170.18 cm Weight: 112.037 kg ANE Physical Exam - Airway Neck exam: FROM Mallampati Score: Class 2 Mouth exam: poor dentition - Pulmonary Pulmonary: no respiratory distress - Cardiovascular Cardiovascular: regular rate and rhythym - ASA Status ASA Status: II ANE Anesthesia Plan Anesthesia Plan: general endotracheal anesthesia, GA w LMA (LMA vs ETT)
[2018-11-29] MEDS ORDERED: D5W IV ONE (07:30)
[2018-11-29] MEDS ORDERED: GENTAMICIN SULFATE IV ONE (07:30)
[2018-11-29] MEDS ORDERED: VANCOMYCIN 1.5 GM in NS 250 ML IV ONE (07:30)
[2018-11-29] MEDS ORDERED: REMIFENTANIL HCL 1 MG VIAL ONE (07:47)
[2018-11-29] MEDS ORDERED: fentaNYL 100 MCG/2 ML INJ ONE ×2 (07:47→08:39)
[2018-11-29] MEDS ORDERED: PROPOFOL/EMULSION 500 MG/50 ML BOTTLE IV ONE (07:48)
[2018-11-29] MEDS ORDERED: LIDOCAINE 2% 100 MG/5 ML SYR ONE (07:48)
[2018-11-29] MEDS ORDERED: DEXAMETHASONE 4 MG/ML VIAL ONE ×2 (08:12)
[2018-11-29] MEDS ORDERED: ONDANSETRON 4 MG/2 ML VIAL ONE (08:12)
[2018-11-29] MEDS ORDERED: PHENYLEPHRINE HCL 100 MCG/ML SYR ONE (08:32)
[2018-11-29] MEDS ORDERED: oxyCODONE IR 5 MG TAB PO PRN (08:53)
[2018-11-29] MEDS ORDERED: LR 500 ML IV PRN (08:53)
[2018-11-29] MEDS ORDERED: NALOXONE HCL 0.4 MG/ML INJ IVP PRN (08:53)
[2018-11-29] MEDS ORDERED: ACETAMINOPHEN 500 MG TAB PO PRN (08:53)
[2018-11-29] MEDS ORDERED: fentaNYL 100 MCG/2 ML INJ IVP PRN (08:53)
[2018-11-29] MEDS ORDERED: ONDANSETRON 4 MG/2 ML VIAL IVP PRN ×2 (08:53→09:16)
[2018-11-29] MEDS ORDERED: HYDROCODONE/APAP 5/325 TAB PO PRN (08:53)
[2018-11-29] MEDS ORDERED: ALBUTEROL 3 ML DEYVIAL IH PRN (08:53)
[2018-11-29] MEDS ORDERED: HYDROmorphONE/DILAUDID 1 MG/ML INJ IVP PRN (08:53)
[2018-11-29] MEDS ORDERED: METOCLOPRAMIDE 10 MG/2 ML VIAL IVP PRN (08:53)
[2018-11-29] MEDS ORDERED: ACETAMINOPHEN 325 MG PO PRN (08:59)
[2018-11-29] MEDS ORDERED: OPIUM/BELLADONNA ALKALO SUPP PR PRN (09:00)
[2018-11-29] MEDS ORDERED: ZOLPIDEM TARTRATE 5 MG TAB PO PRN (09:16)
[2018-11-29] MEDS ORDERED: ACETAMINOPHEN 325 MG TAB PO PRN (09:16)
[2018-11-29] MEDS ORDERED: ONDANSETRON DISINTEGRATING 4 MG TAB PO PRN (09:16)
--- NOTE | 2018-11-29 09:20 | POSTOPPROG ---
Post Op Note Date of Operation: 11/29/18 (dictated) Surgeon: Emmanuel Clay Anesthesiologist: Zane Anesthesia: GET(General Endotracheal) Pre-op Diagnosis: prostate cancer / retention of urine Procedure: TURP Inf/Abcess present in the surg proc area at time of surgery?: No EBL: 50-100 Drains: Other (mckenzie 3 way) Specimen(s): sent
[2018-11-29] MEDS ORDERED: oxyCODONE IR 5 MG TAB ONE (09:54)
--- NOTE | 2018-11-29 10:08 | GOP ---
[f rep st] OPERATIVE REPORT DATE OF OPERATION: 11/29/2018 SURGEON: Emmanuel Clay MD ANESTHESIA: General anesthesia. ANESTHESIOLOGIST: Dr. Degroot. PREOPERATIVE DIAGNOSIS: Prostate cancer with urinary retention. POSTOPERATIVE DIAGNOSIS: Prostate cancer with urinary retention. PROCEDURE PERFORMED: Transurethral resection of the prostate. FINDINGS: SPECIMENS: Specimen sent for pathology. ESTIMATED BLOOD LOSS: Less than 100 mL. DESCRIPTION OF PROCEDURE: After undergoing general anesthesia, prepped and draped in normal sterile fashion and appropriate time-out, the scope was passed into his bladder under direct vision. His stefany dder had no tumor, stones, foreign bodies or diverticula. At that point, the TUR of the prostate was begun, taking down to the median lobe, the right lateral lobe and right posterior lobe. Left latera l lobe left portion of the posterior lobe resected. At the end of the procedure, the chips were Gloria k'd out of the bladder and verumontanum preserved, ureteral orifices preserved and external sphincter approximated at the midline symmetrically and hemostasis was noted. At that point Uro-jet placed in the urethra and 3-way catheter passed over a Mandarin guide, 70 mL balloon inflated, traction placed and irrigated clear. Specimen sent for pathology. He will be admitted for postop care. I will dis cuss the findings with his family. COMPLICATIONS: None /[id number]/MODL
--- NOTE | 2018-11-29 10:54 | GOP ---
[f rep st] OPERATIVE REPORT PATIENT NAME: PA FINCH DATE OF : 09/08/1936 DATE OF OPERATION: 11/29/2018 SURGEON: Emmanuel Clay MD ANESTHESIA: Spinal anesthesia. ANESTHESIOLOGIST: Dr. Perry. PREOPERATIVE DIAGNOSIS: 1. BPH with urinary obstruction. 2. Prostatic calculi. 3. Overactive bladder with urgency. POSTOPERATIVE DIAGNOSIS: 1. BPH with urinary obstruction. 2. Prostatic calculi. 3. Overactive bladder with urgency. PROCEDURE PERFORMED: Transurethral resection of prostate. FINDINGS: obst ESTIMATED BLOOD LOSS: Less than 100 mL. DESCRIPTION OF PROCEDURE: After undergoing appropriate anesthesia, prepped and draped in normal sterile fashion in dorsal lithotomy position. Urethra was normal. Prostate was obstructing at the bladder neck with a high-riding bladder neck. At that point, I was able to negotiate and get into the bladder. Bladder had +3 trabeculations with cellules. Ureteral orifices normal. No tumors, stones, or foreign bodies identified in the bladder. TUR was begun, taking down the elevated bladder neck, and then at that point, the right lateral lobe, right portion of the posterior lobe resected. Left lateral lobe and left portion of the posterior lobe resected. The bladder was Ellik'd free of all chips and clots. There were stones coming from the prostate, and on the right side, had a large cluster that was evacuated and then the verumontanum preserved. External sphincter approximated at the midline symmetrically. Bladder was intact and normal. Ureteral orifices preserved. Hemostasis noted. All this was performed with bipolar instrumentation. At that point, the Uro- jet was placed in the urethra and a 3-way Ruth catheter passed over a Mandarin guide. Balloon inflated to 70 mL and traction placed, irrigated clear. Specimens sent to Pathology. COMPLICATIONS: None. DISPOSITION: I will discuss with his the procedure and have followup with him as an inpatient overnight stay and plan on pulling his catheter tomorrow. We did discuss preoperatively he could have exacerbation of his urge incontinence after relieving his obstruction. He is aware that, and further therapy may be needed on the urgency component. /[id number]/MODL MTDD
--- NOTE | 2018-11-29 13:21 | POSTANESTH ---
Post Anesthetic Evaluation Cardiovascular Status: Normal, Stable Respiratory Status: Normal, Stable Level of Consciousness/Mental Status: Can Participate in Eval Pain Control: Adequate, Prn Tx Ordered Nausea/Vomiting Control: Adequate, Prn Tx Ordered Complications Possibly Related to Anesthesia: None Noted
[2018-11-29] MEDS: FERROUS SULFATE 325 MG TAB PO SCH (14:01)
[2018-11-29] MEDS: LISINOPRIL/HCTZ 20/12.5MG 1 EA TAB PO SCH (14:02)
[2018-11-29] MEDS: HYDROCODONE/APAP 5/325 TAB PO PRN ×2 (14:54→21:16)
[2018-11-29] MEDS: D5W LR 1,000 ML IV SCH (19:22)
[2018-11-30] MEDS: HYDROCODONE/APAP 5/325 TAB PO PRN (02:50)
[2018-11-30] MEDS: D5W LR 1,000 ML IV SCH (02:51)
--- NOTE | 2018-11-30 07:38 | SOAPPROG ---
SOAP Progress Note Assessment/Plan: Assessment: Prostate cancer metastatic to intraabdominal lymph node Acute active rx by Dr. Clay Urinary retention Acute POD #1, no problem, path pending Plan: DC mckenzie and dc home 11/30/18 07:36 Subjective: ok, Objective: Vital Signs Temp Pulse Resp BP Pulse Ox 36.6 C 47 L 18 108/61 99 11/30/18 03:53 11/30/18 03:53 11/30/18 03:53 11/30/18 03:53 11/30/18 03:53 11/29/18 11/30/18 12/01/18 05:59 05:59 05:59 Intake Total 3717 Output Total 1450 Balance 2267 Physical Exam - Physical Exam General Appearance: WD/WN Neck: supple Respiratory: No respiratory distress Extremities: No calf tenderness Neuro/Psych: oriented x 3 ICD10 Worksheet Patient Problems: Problems Problem Status Onset Prostate cancer metastatic to intraabdominal lymph node Acute Urinary retention Acute Mckenzie catheter problem Acute - ICD10 Problem Qualifiers (1) Prostate cancer metastatic to intraabdominal lymph node (2) Urinary retention
[2018-11-30] MEDS: FERROUS SULFATE 325 MG TAB PO SCH (08:18)
--- NOTE | 2018-11-30 11:08 | ASMTLACE ---
LACE Length of stay for Answers: 1 day current admission Acuity / Level of Answers: No Care: Did the patient have an inpatient admission? Comorbidities - select Answers: Any tumor (including all that apply lymphoma or leukemia) Other Notes: HTN # of Emergency department Answers: 5-8 visits in the last 6 months Score: 8 Date Signed: 11/30/2018 11:07 AM Electronically Signed By:Amber Meraz RN
[2018-11-30] MEDS: LISINOPRIL/HCTZ 20/12.5MG 1 EA TAB PO SCH (12:20)
[2018-11-30 12:22] VITALS: BP 141/88
== END 2018-11-30 14:25 | disposition home or self-care (01) ==
LOC: F1N 05:30
PROVIDERS: ADMIT Specialist; ATTEND Specialist
PROC: 0VB08ZZ Excision of Prostate, Via Natural or Artificial Opening Endoscopic (ICD-10-PCS; principal; 2018-11-29 07:15)
DX: C61 Malignant neoplasm of prostate (principal); C77.2 Secondary and unspecified malignant neoplasm of intra-abdominal lymph nodes; R33.9 Retention of urine, unspecified; I10 Essential (primary) hypertension; D64.9 Anemia, unspecified
CPT/HCPCS: J1100; J1580; J2001; J2370; J2405; J2704; J3010; J3370